=== PATIENT | female | born 1940 | race Caucasian/White ===

== ENCOUNTER → 2017-01-16 | Outpatient (CLI) | payer MEDICARE, BC ==
[~2017-01-16] MED LIST: ATIVAN 0.50.5 MG/TAB PO; PREDNISONE20 MG PO; ZOCOR 40MG40 MG PO; ZYRTEC 10MG10 MG PO
== END ==
LOC: MC.RAD 10:53
DX: Z12.31 Encounter for screening mammogram for malignant neoplasm of breast (principal); Z13.820 Encounter for screening for osteoporosis

== ENCOUNTER → 2018-02-07 | Outpatient (CLI) | payer MEDICARE, BC | LOC: MC.RAD 12:47 | DX: N60.02 Solitary cyst of left breast (principal) ==

== ENCOUNTER → 2019-02-17 | Outpatient (CLI) | payer MEDICARE, BC | LOC: MC.RAD 11:10 | DX: Z12.31 Encounter for screening mammogram for malignant neoplasm of breast (principal) ==

== ENCOUNTER 2019-09-13 16:43 | Emergency (ER) | payer MEDICARE, BC ==
[~2019-09-13] VITALS: Ht 165.1 cm; Wt 73.6 kg
[2019-09-13 16:57] VITALS: TEMP 98.4
[2019-09-13] MEDS ORDERED: DOXYCYCLINE 10100 MG PO (18:48)
[2019-09-13 19:05] VITALS: BP 132/77; PULSE 96
== END 2019-09-13 19:05 | disposition home or self-care (01) ==
LOC: COL.ER 16:43
DX: M79.631 Pain in right forearm (principal); M79.89 Other specified soft tissue disorders; E78.5 Hyperlipidemia, unspecified

== ENCOUNTER → 2020-02-20 | Outpatient (CLI) | payer MEDICARE, BC ==
[~2020-02-20] MED LIST changes: +DOXYCYCLINE 10100 MG PO
== END ==
LOC: MC.RAD 14:28
DX: Z12.31 Encounter for screening mammogram for malignant neoplasm of breast (principal); N64.89 Other specified disorders of breast

== ENCOUNTER → 2020-03-04 | Outpatient (CLI) | payer MEDICARE, BC | LOC: COL.LAB 08:00 → SDCO 03-25 07:30 → EDSTATUS 03-25 07:30 | DX: N64.89 Other specified disorders of breast (principal) ==

== ENCOUNTER → 2020-03-04 | Outpatient (CLI) | payer MEDICARE, BC | LOC: MC.RAD 12:55 | DX: N64.89 Other specified disorders of breast (principal) ==

== ENCOUNTER → 2021-02-22 | Outpatient (CLI) | payer MEDICARE, BC | LOC: MC.RAD 10:06 | DX: Z12.31 Encounter for screening mammogram for malignant neoplasm of breast (principal); Z80.3 Family history of malignant neoplasm of breast ==

== ENCOUNTER 2022-11-08 06:56 | Day surgery (SDC) | payer MEDICARE, BC ==
[2022-11-08] VITALS (14 sets, daily range): BP systolic 101–160; BP diastolic 45–76; PULSE 72–120; TEMP 97.8–99.9
[~2022-11-08] VITALS: Ht 163.8 cm; Wt 70.5 kg
[2022-11-08] MEDS ORDERED: VITAMIN D250 MCG PO (08:22)
[2022-11-08] MEDS ORDERED: CALCIUM WITH D31 CTB (08:23)
[2022-11-08] MEDS ORDERED: VITAMINC250CH (08:24)
[2022-11-08] MEDS ORDERED: MULTIVITAMIN200 MCG PO (08:24)
[2022-11-08] MEDS ORDERED: PAPAYA ENZYME1 TA1 PO (08:25)
--- NOTE | 2022-11-08 14:30 | NUR ---
pt admitted to room, family at bedside. pt drowsy and does not appear to be in pain. vss. admission assessment and med rec complete. left chest dressing cdi. kevin drain to bulb suction w bloody output. scds to ble. INT to right hand. call light in reach. no needs at this time.
--- NOTE | 2022-11-08 19:00 | NUR ---
awake and sitting up in bed, bedside shift report received from MEERA Moreno, denies needs at this time
--- NOTE | 2022-11-08 20:45 | NUR ---
remains in bed and looking at TV, full assessment completed, see interventions for further info, c/o dry scratchy throat, doesn't have her purse with her for her cough drops, provided her with mints to help soothe
--- NOTE | 2022-11-08 23:00 | NUR ---
remains awake and resting in bed with TB on
--- NOTE | 2022-11-08 23:53 | NUR ---
medicated with scheduled motrin, denies pain or needs,
[2022-11-09] VITALS (7 sets, daily range): BP systolic 101–134; BP diastolic 38–76; PULSE 70–103; TEMP 98.2–98.7
--- NOTE | 2022-11-09 03:00 | NUR ---
appears to be sleeping
--- NOTE | 2022-11-09 04:45 | NUR ---
in bed with lights off, eyes closed, resp quiet and easy
--- NOTE | 2022-11-09 07:14 | NUR ---
bedside shift report given to MEERA Moreno
--- NOTE | 2022-11-09 08:59 | NUR ---
pt resting in bed, tolerating breakfast well. pt denies pain. left chest dressing is cdi. corinna drain w minimal bloody output. morning med crushed and given with applesauce. scds to ble. INT to right hand. pt denies needs at this time. call light in reach.
--- NOTE | 2022-11-09 10:43 | NUR ---
Flame Annealing Machine Setter met with patient to discuss discharge planning. Patient confirmed she lives alone in [place]. Patient reports her primary care physician is Dr. Vaughan and her preferred pharmacy is [facility]. She denied having difficulty affording her medications. Patient reports her next of kin and electronic parts salesperson is Kal Hanley, her son, (P#: [phone]). Patient reports she lives in a split level home and is able to go up and down her stairs without issues and is independent with her ADLS. She denies having any durable medical equipment at this time. She reports she would like to return home at time of discharge but may spend some time at her niece's home prior to returning home. Her niece is Honey Polancojm. vessel slag worker requested contact information for Honey, which the patient will provide at a later time. Discharge plan: home or with her niece.
--- NOTE | 2022-11-09 11:16 | NUR ---
Initial visit: Baking Assistant stopped by the room on rounds. Pt was resting and content. Pt has no needs right now. Baking Assistant will follow up as needed.
[2022-11-09] MEDS ORDERED: NORCO 325 MG-51 TAB PO (12:27)
--- NOTE | 2022-11-09 13:12 | NUR ---
INT discontinued. MARTHA drain teaching provided to pt and family. discharge instructions given, all questions answered.
--- NOTE | 2022-11-09 13:32 | NUR ---
pt ambulated to personal vehicle accompanied by PCT and family.
== END 2022-11-09 13:33 | disposition home or self-care (01) ==
LOC: SDCO 06:56 → SURG 14:30 → SDCO 11-09 13:33
DX: C50.912 Malignant neoplasm of unspecified site of left female breast (principal)
CPT/HCPCS: OP; A9520-JZ; J0690; J1100; J2250; J2405; J2704; J3010; J7120

== ENCOUNTER → 2023-05-15 | Outpatient (CLI) | payer MEDICARE, BC ==
[~2023-05-15] MED LIST changes: +CALCIUM WITH D31 CTB; +MULTIVITAMIN200 MCG PO; +NORCO 325 MG-51 TAB PO; +PAPAYA ENZYME1 TA1 PO; +VITAMIN D250 MCG PO; +VITAMINC250CH
== END ==
LOC: MC.RAD 16:36
DX: Z12.31 Encounter for screening mammogram for malignant neoplasm of breast (principal)